=== PATIENT | female | born 1970 | race Caucasian/White ===

== ENCOUNTER → 2019-04-21 | Outpatient (CLI) | payer OTHER ==
[~2019-04-21] MED LIST: ALBU8.5H4 IH; CARI350T PO; CRS350T PO; HYDR-3820 PO; LD5PT TOP; LORA1TAB PO; PREG75CA PO; [UNRECOGNIZED DRUG - OTHER]
--- NOTE | 2019-04-21 16:44 | Diagnostic Imaging Report ---
PATIENT HISTORY: POSITIVE TB TEST. TECHNIQUE: Two views of the chest. COMPARISON: 09/01/2014 FINDINGS: The lung volumes are normal. No focal consolidation is seen. No large pleural effusion or pneumothorax is seen. The cardiomediastinal silhouette is normal in size and contour. No acute osseous abnormality is seen. IMPRESSION: No acute pulmonary abnormality seen. No radiographic evidence of active tuberculosis. Dictated by: Dictated on workstation # [id number]
== END ==
LOC: RAD 15:42
PROVIDERS: ATTEND Family Medicine
DX: R76.11 Nonspecific reaction to tuberculin skin test without active tuberculosis (principal)
CPT/HCPCS: 71046

== ENCOUNTER 2022-03-31 20:10 | Emergency (ER) | payer SELFPAY ==
[~2022-03-31] VITALS: Ht 157.5 cm; Wt 70.3 kg
[~2022-03-31 20:10] MED LIST changes: +ACHYD1T PO; -HYDR-3820 PO
[2022-03-31 20:45] LABS: BASOPHILS % (AUTO) 0 % (0-10); EOSINOPHILS # (AUTO) 0.2 10^3/uL (0.0-0.3); EOSINOPHILS % (AUTO) 1 % (0-10); HEMATOCRIT 48 % (35-52); HEMOGLOBIN 16.5 g/dL (11.5-16.0); LYMPHOCYTES # (AUTO) 2.2 10^3/uL (1.0-4.0); LYMPHOCYTES % (AUTO) 18 % (12-44); MEAN CORPUSCULAR HEMOGLOBIN 29 pg (25-34); MEAN CORPUSCULAR HGB CONC 34 g/dL (32-36); MEAN CORPUSCULAR VOLUME 86 fL (80-99); MEAN PLATELET VOLUME 8.6 fL (9.0-12.2); MONOCYTES # (AUTO) 0.8 10^3/uL (0.0-1.0); MONOCYTES % (AUTO) 6 % (0-12); NEUTROPHILS # (AUTO) 9.3 10^3/uL (1.8-7.8); NEUTROPHILS % (AUTO) 74 % (42-75); PLATELET COUNT 463 10^3/uL (130-400); WHITE BLOOD COUNT 12.5 10^3/uL (4.3-11.0)
[2022-03-31] MEDS ORDERED: RX-ONDANSETRON 4 MG ODT (ZOFRAN) PPK #4 PO STA (20:45)
[2022-03-31] MEDS ORDERED: ONDA4TAB11 PO (20:45)
[2022-03-31] MEDS ORDERED: LACTATED RINGERS 1,000 ML IV ONE (20:45)
[2022-03-31] MEDS ORDERED: RX-NIRMATRELVIR/RITONAVIR (PAXLOVID) #30 TABS PO SCH (20:45)
[2022-03-31] MEDS ORDERED: KETOROLAC 30 MG/ML VIAL IVP PRN (20:45)
[2022-03-31] MEDS ORDERED: ONDANSETRON 4 MG/2 ML (SDV) Z0FRAN IVP ONE (20:45)
--- NOTE | 2022-03-31 20:45 | ED Cough/URI ---
General Chief Complaint: COVID19 Suspect/Confirmed Stated Complaint: COVID +,SOB, BODY ACHES Source: patient Exam Limitations: no limitations History of Present Illness Date Seen by Provider: Mar 31, 2022 Time Seen by Provider: 20:22 Initial Comments Patient to the ER by private conveyance with chief complaint of 2 days of cough, malaise, nausea and vomiting and feeling that her ribs are swollen. She has a history of rheumatoid arthritis treating it homeopathically with Coumarin, turmeric, etc. she is not on any medications at all. She feels dehydrated. She is not having fevers. She took a home COVID test today which was positive. She is having some aching in her ribs from all the vomiting. Allergies and Home Medications Allergies Coded Allergies: No Known Drug Allergies (Verified , 01/13/08) Patient Home Medication List Home Medication List Reviewed: Yes Albuterol Sulfate (Albuterol Sulfate Hfa) 8.5 Gm Hfa.aer.ad, 8.5 GM IH NEEDED, (Reported) Entered as Reported by: CHRISTINA POE on 11/28/10945 Carisoprodol (Soma) 350 Mg Tablet, 1 TAB PO HS, (Reported) Entered as Reported by: CHRISTINA POE on 11/28/10945 Carisoprodol (Soma) 350 Mg Tablet, 350 MG PO BID PRN PRN for SPASMS Prescribed by: LAURENT CEE on 07/05/16 1359 Hydrocodone Bit/Acetaminophen (HYDROcodone/APAP 10/325 TABLET) 1 Each Tablet, 1 EACH PO Q4H PRN for PAIN Prescribed by: LAURENT CEE on 07/05/16 1359 Lidocaine (Lidoderm 5% Patch) 1 Ea Patch, 1 EA TOP NEEDED, (Reported) Entered as Reported by: CHRISTINA POE on 11/28/10945 Lorazepam (Ativan) 1 Mg Tablet, 1 EACH PO BID, (Reported) Entered as Reported by: CHRISTINA POE on 11/28/10945 Ondansetron (Ondansetron Odt) 4 Mg Tab.rapdis, 4 MG PO Q6H PRN for NAUSEA/VOMITING Prescribed by: SIA LANDRY on 03/31/222044 [Glucocan] , (Reported) Entered as Reported by: ELLIE DEL CID on 11/30/16 1124 Review of Systems Review of Systems Constitutional: chills; No diaphoresis, No fever; malaise EENTM: No ear discharge, No ear pain Respiratory: cough; No phlegm, No short of breath, No wheezing Cardiovascular: No edema, No Hx of Intervention, No palpitations Gastrointestinal: No abdominal pain; constipation; No diarrhea; nausea, vomiting Genitourinary: No discharge, No dysuria Musculoskeletal: see HPI; No back pain, No joint pain All Other Systems Reviewed Negative Unless Noted: Yes Past Nwqxmli-Ripywa-Khlvwm Hx Patient Social History Tobacco Use?: No Use of E-Cig and/or Vaping dev: No Substance use?: No Immunizations Up To Date Tetanus Booster (TDap): Less than 5yrs Seasonal Allergies Seasonal Allergies: Yes Past Medical History Gallbladder, Orthopedic Asthma Reproductive Disorders: Yes (ONLY ABLE TO HAVE 1 CHILD) Female Reproductive Disorders: Ovarian Cyst Rheumatoid Arthritis Hypothyroidsim Family Medical History No Pertinent Family Hx Physical Exam Vital Signs - First Documented 03/31/22 20:18 Temp 36.7 Pulse 104 Resp 14 B/P (MAP) 117/83 (94) Pulse Ox 97 O2 Delivery Room Air Capillary Refill : Height: 5'2" Weight: 173lbs. oz. 78.579553at; BMI Method:Stated General Appearance: WD/WN, no apparent distress Eyes: Bilateral Eye Normal Inspection, Bilateral Eye PERRL, Bilateral Eye EOMI HEENT: PERRL/EOMI, normal ENT inspection, TMs normal; No pharynx normal (Dry oral mucosa) Neck: full range of motion, supple Respiratory: lungs clear, normal breath sounds, no respiratory distress (100% on room air nonlabored breathing), no accessory muscle use Cardiovascular: normal peripheral pulses, regular rate, rhythm, tachycardia (106) Gastrointestinal: non tender, soft Neurologic/Psychiatric: alert, normal mood/affect, oriented x 3 Skin: normal color, warm/dry Progress/Results/Core Measures Suspected Sepsis SIRS Temperature: Pulse: Respiratory Rate: Laboratory Tests 03/31/22 20:33: White Blood Count 12.5H Blood Pressure / Mean: Laboratory Tests 03/31/22 20:33: Creatinine 0.82, Platelet Count 463H Results/Orders Lab Results Laboratory Tests Test 03/31/22 20:33 Range/Units White Blood Count 12.5 H 4.3-11.0 10^3/uL Red Blood Count 5.64 H 3.80-5.11 10^6/uL Hemoglobin 16.5 H 11.5-16.0 g/dL Hematocrit 48 35-52 % Mean Corpuscular Volume 86 80-99 fL Mean Corpuscular Hemoglobin 29 25-34 pg Mean Corpuscular Hemoglobin Concent 34 32-36 g/dL Red Cell Distribution Width 13.7 10.0-14.5 % Platelet Count 463 H 130-400 10^3/uL Mean Platelet Volume 8.6 L 9.0-12.2 fL Immature Granulocyte % (Auto) 0 % Neutrophils (%) (Auto) 74 42-75 % Lymphocytes (%) (Auto) 18 12-44 % Monocytes (%) (Auto) 6 0-12 % Eosinophils (%) (Auto) 1 0-10 % Basophils (%) (Auto) 0 0-10 % Neutrophils # (Auto) 9.3 H 1.8-7.8 10^3/uL Lymphocytes # (Auto) 2.2 1.0-4.0 10^3/uL Monocytes # (Auto) 0.8 0.0-1.0 10^3/uL Eosinophils # (Auto) 0.2 0.0-0.3 10^3/uL Basophils # (Auto) 0.0 0.0-0.1 10^3/uL Immature Granulocyte # (Auto) 0.1 0.0-0.1 10^3/uL Sodium Level 137 135-145 MMOL/L Potassium Level 4.0 3.6-5.0 MMOL/L Chloride Level 100 98-107 MMOL/L Carbon Dioxide Level 24 21-32 MMOL/L Anion Gap 13 5-14 MMOL/L Blood Urea Nitrogen 9 7-18 MG/DL Creatinine 0.82 0.60-1.30 MG/DL Estimat Glomerular Filtration Rate 88 BUN/Creatinine Ratio 11 Glucose Level 135 H 70-105 MG/DL Calcium Level 10.0 8.5-10.1 MG/DL Magnesium Level 2.1 1.6-2.4 MG/DL My Orders Orders - SIA LANDRY Ed Iv/Invasive Line Start (03/31/22 20:38) Lactated Ringers (Lr 1000 Ml Iv Solution (03/31/22 20:45) Cbc With Automated Diff (03/31/22 20:38) Basic Metabolic Panel (03/31/22 20:38) Magnesium (03/31/22 20:38) Covid-19 External Lab Results (03/31/22 20:38) Rx-Nirmatrelvir/Ritonavir(Eua) (Rx-Paxlo (03/31/22 20:45) Ketorolac Injection (Toradol Injection) (03/31/22 20:45) Ondansetron Injection (Zofran Injectio (03/31/22 20:45) Rx-Ondansetron Po (Rx-Zofran Po) (03/31/22 20:45) Medications Given in ED Current Medications Medications Dose Ordered Sig/Jeremiah Route Start Time Stop Time Status Last Admin Dose Admin Ketorolac Tromethamine 30 mg Q6H PRN IVP 03/31/22 20:45 04/05/22 20:44 03/31/22 20:57 30 MG Lactated Ringer's 1,000 ml @ 0 mls/hr Q0M ONCE IV 03/31/22 20:45 03/31/22 20:46 DC 03/31/22 20:57 0 MLS/HR Ondansetron HCl 8 mg ONCE ONCE IVP 03/31/22 20:45 03/31/22 20:46 DC 03/31/22 20:57 8 MG Vital Signs/I&O 03/31/22 03/31/22 20:18 20:18 Temp 36.7 Pulse 104 Resp 14 B/P (MAP) 117/83 (94) Pulse Ox 97 O2 Delivery Room Air Room Air Capillary Refill : Progress Note : Time: 20:44 Progress Note A liter of lactated Ringer's, 8 of Zofran, 30 of Toradol and check some basic labs and electrolytes. We will start her on Paxlovid. Patient is in agreement with this plan. Departure Impression Primary Impression: COVID-19 Additional Impressions: Nausea & vomiting Qualified Codes: R11.2 - Nausea with vomiting, unspecified Mild dehydration Disposition: 01 HOME, SELF-CARE Condition: Stable Departure-Patient Inst. Decision time for Depature: 21:51 Referrals: NO,LOCAL PHYSICIAN (PCP/Family) Primary Care Physician Patient Instructions: COVID-19 (DC), COVID-19 Vaccine (mRNA) Moderna FDA Fact Sheet Add. Discharge Instructions: Drink plenty of fluids. Take the Paxlovid as directed. Ondansetron 1 or 2 tablets every 6 hours as needed for nausea and/or vomiting. Tylenol and Motrin as necessary for body aches or fever. All discharge instructions reviewed with patient and/or family. Voiced understanding. Scripts Ondansetron (Ondansetron Odt) 4 Mg Tab.rapdis 4 MG PO Q6H PRN for NAUSEA/VOMITING, #8 TAB 0 Refills Prov: SIA LANDRY 03/31/22 Work/School Note: Work Release Form Date Seen in the Emergency Department: Mar 31, 2022 Return to Work: Apr 05, 2022 Restrictions: Return-No Fever (24hrs) SIA LANDRY Mar 31, 2022 20:45
[2022-03-31 21:07] LABS: CREATININE SERUM 0.82 MG/DL (0.60-1.30)
[2022-03-31 21:09] LABS: MAGNESIUM 2.1 MG/DL (1.6-2.4)
[2022-03-31 22:44] VITALS: BP 140/89
== END 2022-03-31 22:44 | disposition home or self-care (01) ==
LOC: EDUNIT# 20:10 → ER 20:12
DX: U07.1 COVID-19 (principal); E86.0 Dehydration; Z28.310 Unvaccinated for COVID-19
CPT/HCPCS: 36415; 80048; 83735; 85025

== ENCOUNTER 2023-01-24 10:10 | Emergency (ER) | payer SELFPAY ==
[~2023-01-24] VITALS: Ht 154 cm; Wt 75.0 kg
[~2023-01-24 10:10] MED LIST changes: +ONDA4TAB11 PO
--- NOTE | 2023-01-24 10:24 | ED General ---
General Chief Complaint: Abdominal/GI Problems Stated Complaint: NAUSEA | DIZZY | LIGHTHEADED History of Present Illness Date Seen by Provider: Jan 24, 2023 Time Seen by Provider: 10:24 Initial Comments Patient with some nausea, vomiting, mild dizziness lightheadedness. She reports she been having abdominal issues for about 3 weeks. That she has had some diarrhea stools some vomiting hard time keeping them down. She has some mild discomfort in the left abdomen lower and upper. She reports that she had some tarry stool but week ago. That she has not had much of abdominal last 2 days but also has not been eating much. She denies any fevers chills. Allergies and Home Medications Allergies Coded Allergies: No Known Drug Allergies (Verified , 01/13/08) Patient Home Medication List Home Medication List Reviewed: Yes Albuterol Sulfate (Albuterol Sulfate Hfa) 8.5 Gm Hfa.aer.ad, 8.5 GM IH NEEDED, (Reported) Entered as Reported by: CHRISTINA POE on 11/28/10 0946 Carisoprodol (Soma) 350 Mg Tablet, 1 TAB PO HS, (Reported) Entered as Reported by: CHRISTINA POE on 11/28/10 0946 Carisoprodol (Soma) 350 Mg Tablet, 350 MG PO BID PRN PRN for SPASMS Prescribed by: LAURENT CEE on 07/05/16 1359 Hydrocodone Bit/Acetaminophen (HYDROcodone/APAP 10/325 TABLET) 1 Each Tablet, 1 EACH PO Q4H PRN for PAIN Prescribed by: LAURENT CEE on 07/05/16 1359 Hydrocodone/Acetaminophen (Hydrocodone-Acetamin 5-325 mg) 5 Mg-325 Mg Tablet, 1 TAB PO Q8H PRN for PAIN-MODERATE (5-7) Prescribed by: BRISSA ROMERO on 01/24/23 1250 Hyoscyamine Sulfate (Levsin-Sl) 0.125 Mg Tab.subl, 0.125 MG SL Q4H Prescribed by: BRISSA ROMERO on 01/24/23 1249 Lidocaine (Lidoderm 5% Patch) 1 Ea Patch, 1 EA TOP NEEDED, (Reported) Entered as Reported by: CHRISTINA POE on 11/28/10 0946 Lorazepam (Ativan) 1 Mg Tablet, 1 EACH PO BID, (Reported) Entered as Reported by: CHRISTINA POE on 11/28/10 0946 Ondansetron (Ondansetron Odt) 4 Mg Tab.rapdis, 4 MG PO Q6H PRN for NAUSEA/VOMITING Prescribed by: SIA LANDRY on 03/31/222044 Ondansetron (Ondansetron Odt) 4 Mg Tab.rapdis, 4 MG PO Q6H PRN for NAUSEA/VOMITING Prescribed by: BRISSA ROMERO on 01/24/23 1249 [Glucocan] , (Reported) Entered as Reported by: ELLIE DEL CID on 07/05/16 1124 Review of Systems Review of Systems Constitutional: No chills, No fever Respiratory: no symptoms reported Cardiovascular: no symptoms reported Gastrointestinal: abdominal pain, constipation, nausea, vomiting Musculoskeletal: no symptoms reported Skin: no symptoms reported Psychiatric/Neurological: No Symptoms Reported Hematologic/Lymphatic: No Symptoms Reported Past Ewuloyj-Ukivbm-Iydjnz Hx Immunizations Up To Date Tetanus Booster (TDap): Less than 5yrs First/Initial COVID19 Vaccinat: N/A Seasonal Allergies Seasonal Allergies: Yes Past Medical History Surgery/Hospitalization HX: RA, ASTHMA Gallbladder, Orthopedic Asthma Reproductive Disorders: Yes (ONLY ABLE TO HAVE 1 CHILD) Female Reproductive Disorders: Ovarian Cyst Rheumatoid Arthritis Hypothyroidsim Family Medical History No Pertinent Family Hx Physical Exam Vital Signs Vital Signs - First Documented 01/24/23 10:15 Temp 37.7 Pulse 115 Resp 18 B/P (MAP) 132/92 (105) Pulse Ox 100 Capillary Refill : Height, Weight, BMI Height: 5'2" Weight: 173lbs. oz. 78.787040vs; 28.00 BMI Method:Stated General Appearance: No Apparent Distress Respiratory: Lungs Clear, Normal Breath Sounds Cardiovascular: Tachycardia Gastrointestinal: Soft, Tenderness (Mild left-sided) Extremity: Normal Capillary Refill, Normal Inspection Neurologic/Psychiatric: Alert, Oriented x3, No Motor/Sensory Deficits Skin: Normal Color, Warm/Dry Progress/Results/Core Measures Suspected Sepsis SIRS Temperature: Pulse: Respiratory Rate: Laboratory Tests 01/24/23 10:30: White Blood Count 12.0H Blood Pressure / Mean: Laboratory Tests 01/24/23 10:30: Creatinine 0.71, Platelet Count 467H, Total Bilirubin 0.3 Results/Orders Lab Results Laboratory Tests Test 01/24/23 10:30 Range/Units White Blood Count 12.0 H 4.3-11.0 10^3/uL Red Blood Count 5.02 3.80-5.11 10^6/uL Hemoglobin 15.0 11.5-16.0 g/dL Hematocrit 45 35-52 % Mean Corpuscular Volume 90 80-99 fL Mean Corpuscular Hemoglobin 30 25-34 pg Mean Corpuscular Hemoglobin Concent 33 32-36 g/dL Red Cell Distribution Width 13.5 10.0-14.5 % Platelet Count 467 H 130-400 10^3/uL Mean Platelet Volume 8.7 L 9.0-12.2 fL Immature Granulocyte % (Auto) 0 % Neutrophils (%) (Auto) 69 42-75 % Lymphocytes (%) (Auto) 24 12-44 % Monocytes (%) (Auto) 5 0-12 % Eosinophils (%) (Auto) 2 0-10 % Basophils (%) (Auto) 0 0-10 % Neutrophils # (Auto) 8.2 H 1.8-7.8 10^3/uL Lymphocytes # (Auto) 2.8 1.0-4.0 10^3/uL Monocytes # (Auto) 0.6 0.0-1.0 10^3/uL Eosinophils # (Auto) 0.2 0.0-0.3 10^3/uL Basophils # (Auto) 0.1 0.0-0.1 10^3/uL Immature Granulocyte # (Auto) 0.1 0.0-0.1 10^3/uL Sodium Level 138 135-145 MMOL/L Potassium Level 4.0 3.6-5.0 MMOL/L Chloride Level 102 98-107 MMOL/L Carbon Dioxide Level 27 21-32 MMOL/L Anion Gap 9 5-14 MMOL/L Blood Urea Nitrogen 7 7-18 MG/DL Creatinine 0.71 0.60-1.30 MG/DL Estimat Glomerular Filtration Rate 104 BUN/Creatinine Ratio 10 Glucose Level 122 H 70-105 MG/DL Calcium Level 9.4 8.5-10.1 MG/DL Corrected Calcium 9.3 8.5-10.1 MG/DL Total Bilirubin 0.3 0.1-1.0 MG/DL Aspartate Amino Transf (AST/SGOT) 13 5-34 U/L Alanine Aminotransferase (ALT/SGPT) 17 0-55 U/L Alkaline Phosphatase 89 40-136 U/L Total Protein 6.8 6.4-8.2 GM/DL Albumin 4.1 3.2-4.5 GM/DL Lipase 260 H 8-78 U/L My Orders Orders - BRISSA ROMERO L DO Cbc With Automated Diff (01/24/23 10:29) Comprehensive Metabolic Panel (01/24/23 10:29) Hcg,Qualitative Urine (01/24/23 10:29) Lipase (01/24/23 10:29) Ua Culture If Indicated (01/24/23 10:29) Ondansetron Injection (Zofran Injectio (01/24/23 10:30) Ns Iv 1000 Ml (Sodium Chloride 0.9%) (01/24/23 10:29) Ct Abdomen/Pelvis W (01/24/23 11:08) Iohexol Injection (Omnipaque 350 Mg/Ml 1 (01/24/23 11:30) Received Contrast (Hold Metformin- Contr (01/24/23 11:30) Ns (Ivpb) (Sodium Chloride 0.9% Ivpb Bag (01/24/23 11:30) Hyoscyamine Sl Tablet (Levsin Sl Tablet) (01/24/23 12:45) Promethazine Injection (Phenergan Injec (01/24/23 12:45) Medications Given in ED Current Medications Medications Dose Ordered Sig/Jeremiah Route Start Time Stop Time Status Last Admin Dose Admin Hyoscyamine Sulfate 0.125 mg ONCE ONCE PO 01/24/23 12:45 01/24/23 12:46 DC 01/24/23 13:07 0.125 MG Iohexol 100 ml ONCE ONCE IV 01/24/23 11:30 01/24/23 11:31 DC 01/24/23 11:40 80 ML Ondansetron HCl 4 mg ONCE ONCE IVP 01/24/23 10:30 01/24/23 10:31 DC 01/24/23 10:40 4 MG Promethazine HCl 12.5 mg ONCE ONCE IVP 01/24/23 12:45 01/24/23 12:46 DC 01/24/23 13:07 12.5 MG Sodium Chloride 100 ml ONCE ONCE IV 01/24/23 11:30 01/24/23 11:31 DC 01/24/23 11:40 80 ML Vital Signs/I&O 01/24/23 01/24/23 10:15 13:24 Temp 37.7 37.7 Pulse 115 94 Resp 18 18 B/P (MAP) 132/92 (105) 122/77 Pulse Ox 100 100 Capillary Refill : Progress Note : Progress Note Patient diagnostic studies ordered reviewed and interpreted by me. Patient has a mild increase in her lipase with a very slight elevation of her white count. Patient's CT scan shows no acute abnormality. Patient is likely having a mild pancreatitis. Patient reports that approximately 7 years ago she had an episode of pancreatitis but does not have any known history of problems with her pancreas. She denies any alcohol or drug use. Patient to be treated conservatively as an outpatient with pancreatitis with clear liquid diet, some pain nausea medication. She should follow with her primary care provider next week for recheck and return to the ER as needed. Diagnostic Imaging Diagonstic Imaging: CT Plain Films/CT/US/NM/MRI: abdomen, pelvis Comments Date of Exam:01/24/23 CT ABDOMEN/PELVIS W EXAMINATION: CT abdomen and pelvis with intravenous contrast. TECHNIQUE: Multiple contiguous axial images were obtained through the abdomen and pelvis after the uneventful administration of intravenous contrast. All CT scans use one or more of the following dose optimizing techniques: Automated exposure control, MA and/or KvP adjustment based on patient size and exam type or iterative reconstruction. HISTORY: Abdominal pain. COMPARISON: 07/05/2016. FINDINGS: Limited views of the lower thorax are unremarkable. The liver is normal without focal lesion. There is no biliary ductal dilation. Gallbladder is absent. Pancreas is normal. Spleen is normal. Adrenal glands are normal. The kidneys are normal. There is no hydronephrosis. Urinary bladder is normal. Bowel is normal in caliber without obstruction or inflammation. No free fluid or air. No abdominal or pelvic lymphadenopathy. Aorta is normal in caliber without aneurysm. There are no suspicious osseous lesions. IMPRESSION: 1. No acute abnormality in the abdomen or pelvis. Departure Impression Primary Impression: Pancreatitis Qualified Codes: K85.90 - Acute pancreatitis without necrosis or infection, unspecified Disposition: 01 HOME, SELF-CARE Condition: Stable Departure-Patient Inst. Referrals: NO,LOCAL PHYSICIAN (PCP/Family) Primary Care Physician Patient Instructions: Acute pancreatitis Add. Discharge Instructions: Clear liquid diet for 36 to 48 hours then advance as tolerated. Please follow- up with your primary care provider next week for recheck of your symptoms. Return to the ER with worsening of symptoms or any other concerns. All discharge instructions reviewed with patient and/or family. Voiced understanding. Scripts Ondansetron (Ondansetron Odt) 4 Mg Tab.rapdis 4 MG PO Q6H PRN for NAUSEA/VOMITING, #20 TAB 0 Refills Prov: BRISSA ROMERO DO 01/24/23 Hydrocodone/Acetaminophen (Hydrocodone-Acetamin 5-325 mg) 5 Mg-325 Mg Tablet 1 TAB PO Q8H PRN for PAIN-MODERATE (5-7), #5 TAB Prov: BRISSA ROMERO DO 01/24/23 Hyoscyamine Sulfate (Levsin-Sl) 0.125 Mg Tab.subl 0.125 MG SL Q4H, #10 TAB 0 Refills Prov: BRISSA ROMERO DO 01/24/23 BRISSA ROMERO DO Jan 24, 2023 10:24
[2023-01-24] MEDS ORDERED: NS IV 1000 ML 1,000 ML IV STA (10:29)
[2023-01-24] MEDS ORDERED: ONDANSETRON 4 MG/2 ML (SDV) Z0FRAN IVP ONE (10:30)
[2023-01-24 10:41] LABS: BASOPHILS # (AUTO) 0.1 10^3/uL (0.0-0.1); BASOPHILS % (AUTO) 0 % (0-10); EOSINOPHILS # (AUTO) 0.2 10^3/uL (0.0-0.3); EOSINOPHILS % (AUTO) 2 % (0-10); HEMATOCRIT 45 % (35-52); LYMPHOCYTES # (AUTO) 2.8 10^3/uL (1.0-4.0); LYMPHOCYTES % (AUTO) 24 % (12-44); MEAN CORPUSCULAR HEMOGLOBIN 30 pg (25-34); MEAN CORPUSCULAR HGB CONC 33 g/dL (32-36); MEAN CORPUSCULAR VOLUME 90 fL (80-99); MEAN PLATELET VOLUME 8.7 fL (9.0-12.2); MONOCYTES # (AUTO) 0.6 10^3/uL (0.0-1.0); MONOCYTES % (AUTO) 5 % (0-12); NEUTROPHILS # (AUTO) 8.2 10^3/uL (1.8-7.8); NEUTROPHILS % (AUTO) 69 % (42-75); PLATELET COUNT 467 10^3/uL (130-400)
[2023-01-24 10:52] LABS: ALBUMIN 4.1 GM/DL (3.2-4.5)
[2023-01-24 10:53] LABS: CALCIUM 9.4 MG/DL (8.5-10.1)
[2023-01-24 10:54] LABS: TOTAL PROTEIN 6.8 GM/DL (6.4-8.2)
[2023-01-24 10:56] LABS: BILIRUBIN,TOTAL 0.3 MG/DL (0.1-1.0)
[2023-01-24 10:58] LABS: CREATININE SERUM 0.71 MG/DL (0.60-1.30)
[2023-01-24] MEDS ORDERED: HOLD METFORMIN - RECEIVED CONTRAST 20 ML VIAL IV SCH (11:30)
[2023-01-24] MEDS ORDERED: IOHEXOL 350 MG/ML 100 ML (OMNIPAQUE 350) VIAL IV ONE (11:30)
[2023-01-24] MEDS ORDERED: NS 100 ML (IVPB) BAG IV ONE (11:30)
--- NOTE | 2023-01-24 11:56 | Diagnostic Imaging Report ---
EXAMINATION: CT abdomen and pelvis with intravenous contrast. TECHNIQUE: Multiple contiguous axial images were obtained through the abdomen and pelvis after the uneventful administration of intravenous contrast. All CT scans use one or more of the following dose optimizing techniques: Automated exposure control, MA and/or KvP adjustment based on patient size and exam type or iterative reconstruction. HISTORY: Abdominal pain. COMPARISON: 07/05/2016. FINDINGS: Limited views of the lower thorax are unremarkable. The liver is normal without focal lesion. There is no biliary ductal dilation. Gallbladder is absent. Pancreas is normal. Spleen is normal. Adrenal glands are normal. The kidneys are normal. There is no hydronephrosis. Urinary bladder is normal. Bowel is normal in caliber without obstruction or inflammation. No free fluid or air. No abdominal or pelvic lymphadenopathy. Aorta is normal in caliber without aneurysm. There are no suspicious osseous lesions. IMPRESSION: 1. No acute abnormality in the abdomen or pelvis. Dictated by: Dictated on workstation # [id number]
[2023-01-24] MEDS ORDERED: HYOSCYAMINE 0.125 MG (LEVSIN) TAB PO ONE (12:45)
[2023-01-24] MEDS ORDERED: PROMETHAZINE INJ 25 MG/ML (PHENERGAN) AMP IVP ONE (12:45)
[2023-01-24] MEDS ORDERED: ACHD5005 PO (12:49)
[2023-01-24] MEDS ORDERED: HYOS0.1283 SL (12:49)
[2023-01-24] MEDS ORDERED: ONDA4TAB11 PO (12:49)
[2023-01-24 13:24] VITALS: BP 122/77
== END 2023-01-24 13:25 | disposition home or self-care (01) ==
LOC: EDUNIT# 10:10 → ER 10:14
DX: K85.90 Acute pancreatitis without necrosis or infection, unspecified (principal); Z28.310 Unvaccinated for COVID-19
CPT/HCPCS: 36415; 74177; 80053; 83690; 85025

== ENCOUNTER 2023-03-14 06:55 | Outpatient (CLI) | payer OTHER ==
[~2023-03-14] VITALS: Ht 154.9 cm; Wt 80.0 kg
[~2023-03-14 06:55] MED LIST changes: +ACHD5005 PO; +HYOS0.1283 SL
[2023-03-14] MEDS ORDERED: FAMO-144 PO (10:10)
[2023-03-14] MEDS ORDERED: DIPH25CA79 PO (10:10)
== END 2023-03-14 10:25 | disposition home or self-care (01) ==
LOC: PREOP 06:55
PROVIDERS: ATTEND Surgery
DX: Z01.818 Encounter for other preprocedural examination (principal)

== ENCOUNTER 2023-03-21 10:55 | Day surgery (SDC) | payer OTHER ==
[~2023-03-21] VITALS: Ht 154 cm; Wt 80.0 kg
[~2023-03-21 10:55] MED LIST changes: +DIPH25CA79 PO; +FAMO-144 PO
[2023-03-21] MEDS ORDERED: LACTATED RINGERS 1,000 ML IV STA (11:02)
[2023-03-21] MEDS ORDERED: LACTATED RINGERS 1,000 ML IV ONE (11:05)
[2023-03-21] MEDS ORDERED: HURRICAINE EXT TUBE (BENZOCAINE) ONE (11:05)
--- NOTE | 2023-03-21 11:05 | Progress Note-Pre Operative ---
Pre-Operative Progress Note Date of Available H&P: Mar 21, 2023 Date H&P Reviewed: Mar 21, 2023 Time H&P Reviewed: 11:00 History & Physical: No changes noted Pre-Operative Diagnosis: rectal bleed, family hx colon ca, abd pain ROXY JOHNSON MD Mar 21, 2023 11:05
--- NOTE | 2023-03-21 11:06 | Discharge Inst-Surgical ---
D/C Lap Instructions-ALEX Follow Up Activity as tolerated High Fiber Diet 25g or more per day Avoid Alcohol, Caffeine, Spicy [place] and Acid foods. Drink 64 fluid oz or more of fluids per day. Symptoms to Report: Fever over 101 degree F, Nausea/Vomiting If any problems/questions: Contact your physician or go to Emergency Room ROXY JOHNSON MD Mar 21, 2023 11:06
[2023-03-21] MEDS ORDERED: HURRICAINE EXT TUBE (BENZOCAINE) XX PRN (11:15)
[2023-03-21] MEDS ORDERED: ONDANSETRON INJECTION 4 MG/2 ML (SDV) IVP PRN (11:15)
[2023-03-21] MEDS ORDERED: ONDANSETRON 4 MG ORAL DISSOLVE TABLET PO PRN (11:15)
[2023-03-21] MEDS ORDERED: LIDOCAINE JELLY 2% 6 ML SYRINGE MM PRN (11:15)
[2023-03-21 11:34] VITALS: BP 118/92
[2023-03-21] MEDS ORDERED: LIDOCAINE JELLY 2% 6 ML SYRINGE ONE (11:50)
[2023-03-21] MEDS ORDERED: PROPOFOL INJECTION 50 ML IV ONE ×2 (12:02→12:46)
[2023-03-21] MEDS ORDERED: MIDAZOLAM INJ 2 MG/2 ML VIAL ONE (12:02)
[2023-03-21 12:52] VITALS: BP 93/54
[2023-03-21 12:57] VITALS: BP 115/59
[2023-03-21 13:20] VITALS: BP 120/66
--- NOTE | 2023-03-21 13:31 | Progress Note-Post Operative ---
Post-Operative Progess Note Surgeon (s)/Eye Clinic Manager (s) Surgeon ROXY JOHNSON MD Eye Clinic Manager: none Pre-Operative Diagnosis rectal bleed, family hx colon ca, abd pain Post-Operative Diagnosis stage 2 ext, stage 3 int hemorrhoids, moderate sig diverticulosis, small sigmoid polyp. reflux esophagitis(grade B-C), moderate HH(2.5cm), moderate gastritis and duodenitis. Procedure & Operative Findings Date of Procedure 03/21/23 Procedure Performed/Findings EGD with bx. Colonoscopy with bx. Anesthesia Type mac Estimated Blood Loss Estimated blood loss (mL): minimal Specimens/Packing Specimens Removed ge jxn, antrum, duodenum, sigmoid polyp ROXY JOHNSON MD Mar 21, 2023 13:31
[2023-03-21 13:50] VITALS: BP 120/66
--- NOTE | 2023-03-21 14:04 | Anesthesia-General Post-Op ---
MAC Patient Condition Mental Status/LOC: Same as Preop Cardiovascular: Satisfactory Nausea/Vomiting: Absent Respiratory: Satisfactory Pain: Controlled Complications: Absent Post Op Complications Complications None Follow Up Care/Instructions Patient Instructions None needed. Anesthesiology Discharge Order Discharge Order Patient is doing well, no complaints, stable vital signs, no apparent adverse anesthesia problems. No complications reported per nursing. KWAME MACIAS CRNA Mar 21, 2023 14:04
--- NOTE | 2023-03-21 21:48 | OPERATIVE REPORT ---
DATE OF SERVICE: 03/21/2023 PREOPERATIVE DIAGNOSES: Abdominal pain, rectal bleed, diarrhea, gastroesophageal reflux disease, peptic ulcer disease, family history of colon and breast cancer. POSTOPERATIVE DIAGNOSES: Reflux esophagitis, [place] grade B and C, moderate size hiatal hernia, 2.5 cm in size, moderate gastritis, moderate duodenitis, no distal obstructions. Stage III external and internal hemorrhoids, small polyp in the sigmoid colon, 3 mm in size, moderate sigmoid diverticulosis. PROCEDURE: EGD with biopsy, colonoscopy. SURGEON: Roxy Johnson M.D. ANESTHESIA: Monitored anesthesia care. ESTIMATED BLOOD LOSS: Minimal. FINDINGS: Reflux esophagitis, [place] grade B and C, moderate size hiatal hernia, 2.5 cm in size, moderate gastritis, moderate duodenitis, no distal obstructions. Stage III external and internal hemorrhoids, small polyp in the sigmoid colon, 3 mm in size, moderate sigmoid diverticulosis. DISPOSITION: The patient tolerated the procedure well. INDICATIONS: The patient is a 52-year-old female who has had issues with crampy abdominal pain for the past 6 months. She also reports that over the past 6 weeks, she has been having episodes of watery diarrhea as well as a bright red blood per rectum. She also reports that she has had some dark tarry stools in the past as well. She also reports that she has had some intermittent episodes of nausea. She also does have a strong family history of cancers with her father being diagnosed with a colon cancer at age 70. However, she also reports that her mother and sister were both diagnosed with breast cancer. DESCRIPTION OF PROCEDURE: The patient was brought to the endoscopy suite and laid in the left lateral decubitus position. After adequate IV pain and sedative medications and monitored anesthesia care, the mouthpiece was applied. The endoscope was placed in the mouth, visualizing the pharynx and hypopharyngeal region. Vocal cords, epiglottis and vallecula identified and appeared to be normal. The endoscope was gently intubated in the esophageal opening and esophagus insufflated. The endoscope was then advanced through the valves of Nava of the rectum but no polyps or any neoplasms were identified. The endoscope was then placed in the mouth, visualized the pharynx and hypopharyngeal region. Vocal cords, epiglottis and vallecula identified and appeared to be normal. The endoscope was then gently intubated into the esophageal opening and esophagus was insufflated. The endoscope was then advanced through the first, second and third portions of esophagus at the level of the GE junction, reflux esophagitis, [place] between grade B and C identified. No ulcers or strictures were identified in this region. A biopsy was taken with forceps with visualization of good hemostasis. The endoscope was then advanced into the stomach. The endoscope was retroflexed, visualizing moderate size hiatal hernia approximately 2.5 cm in size. There was a moderate severity gastritis as well as duodenitis. No distal obstructions. A biopsy was taken of the antrum as well as the duodenum with forceps with visualization of good hemostasis. The endoscope was then slowly withdrawn while taking a second look and suctioning of residual air with no additional findings. A digital rectal examination was performed which revealed stage III external and internal hemorrhoids. These internal hemorrhoids were palpable on digital rectal examination and normal sphincter tone was felt. The endoscope was then intubated into the anus, rectum gently insufflated. The endoscope was then advanced through the valves of Nava of the rectum with no polyps or any neoplasms identified. The endoscope was then advanced through the sigmoid colon where a moderate sigmoid diverticulosis identified. There was also a small pedunculated polyp in the sigmoid colon approximately 3 mm in size and this was biopsied and destroyed with forceps and electrocautery with visualization of good hemostasis. The endoscope was then advanced through the remainder of the descending, transverse and ascending colon to the cecum, which appeared normal. The endoscope was then slowly withdrawn while taking a second look and suctioning of residual air with no additional findings. The patient tolerated the procedure well. We will recommend the necessary dietary and lifestyle accommodation, which of course include smoking cessation as well as avoidance of caffeinated beverages, spicy, greasy and acidic foods. She also needs to take in small and more frequent meals and avoidance of eating at night. We will also start her on omeprazole 40 mg daily as well as Carafate 1 gram q.i.d. for the next 2 weeks, then on a p.r.n. basis. She also needs to proceed with a high-fiber diet with addition of a fiber supplement, which are equal or exceed 25 grams daily to promote soft consistency stools on a daily basis, which are not hard or well formed as well as not liquidy in nature. We feel that the episodes of diarrhea are likely related to her gastritis. We will await the biopsy results of the sigmoid colonic polyp. However, due to her strong family history of colon and other cancers, we will recommend a followup colonoscopy within 5 years. Job ID: [id number] DocumentID: [id number] Dictated Date: 03/21/2023 13:01:19 Lithograph Designer Date: 03/21/2023 21:45:00 Dictated By: ROXY JOHNSON MD
== END 2023-03-21 13:50 | disposition home or self-care (01) ==
LOC: ENDO 10:55
PROVIDERS: ATTEND Surgery
DX: K21.00 Gastro-esophageal reflux disease with esophagitis, without bleeding (principal); D12.5 Benign neoplasm of sigmoid colon; K29.50 Unspecified chronic gastritis without bleeding; B96.81 Helicobacter pylori [H. pylori] as the cause of diseases classified elsewhere; K44.9 Diaphragmatic hernia without obstruction or gangrene; K64.2 Third degree hemorrhoids; K64.4 Residual hemorrhoidal skin tags; K57.30 Diverticulosis of large intestine without perforation or abscess without bleeding; R19.7 Diarrhea, unspecified; Z80.0 Family history of malignant neoplasm of digestive organs; Z80.3 Family history of malignant neoplasm of breast; F17.210 Nicotine dependence, cigarettes, uncomplicated; K92.1 Melena
CPT/HCPCS: 84703